=== PATIENT | male | born 1990 | race Caucasian/White ===

== ENCOUNTER 2016-04-14 01:28 | Emergency (ER) | payer OTHER ==
[2016-04-14] MEDS ORDERED: ACETAMINOPHEN 325 MG TAB As Ordered ONE (02:29)
[2016-04-14] MEDS ORDERED: KETOROLAC 30 MG/ML VIAL (J1885) As Ordered ONE (02:30)
[2016-04-14] MEDS ORDERED: ONDANSETRON 4MG/2ML VIAL (J2405) As Ordered ONE (02:30)
--- NOTE | 2016-04-14 02:41 | REP ---
Clinical: Epigastric and abdominal pain. Technique: Upright view of the chest with supine and upright views of the abdomen and pelvis. Findings: Frontal upright view of the chest demonstrates no acute cardiopulmonary process or free air below the diaphragm to suspect pneumoperitoneum. Supine and upright views of the abdomen and pelvis demonstrate nonspecific bowel gas pattern without obstruction or perforation. No organomegaly. No abnormal calcifications. Skeletal structures normal for age. Impression: Nonspecific bowel gas pattern. Signed by Randy Shukla MD 04/14/2016 02:31 A
[2016-04-14 02:51] LABS: BASO % 0.1 % (0.0-1.0); EOS # 0.1 K/mm3 (0.0-0.50); EOS % 1.2 % (0.0-3.0); LARGE UNSTAINED CELL % 0.7 % (0.0-4.0); LYMPH # 0.4 K/mm3 (1.5-6.5); LYMPH % 6.9 % (24.0-44.0); MEAN CORPUSCULAR HEMOGLOBIN 29.5 pg (27.0-33.0); MEAN CORPUSCULAR HGB CONC 35.2 g/dl (32.0-36.5); MEAN CORPUSCULAR VOLUME 83.8 fl (80.0-96.0); MONO # 0.3 K/mm3 (0.0-0.8); MONO % 4.6 % (0.0-5.0); NEUTROPHILS # 4.9 K/mm3 (1.8-7.7); NEUTROPHILS % 86.5 % (36.0-66.0); PLATELET COUNT, AUTOMATED 139 k/mm3 (150-450); RED CELL DISTRIBUTION WIDTH 12.6 % (11.5-14.5); WHITE BLOOD COUNT 5.7 K/mm3 (4.0-10.0)
[2016-04-14 03:16] LABS: ALBUMIN 3.8 GM/DL (3.2-5.2); ALBUMIN/GLOBULIN RATIO 1.23 (1.00-1.93); ALKALINE PHOSPHATASE 27 U/L (45-117); ALT/SGPT 33 U/L (12-78); ANION GAP 9 MEQ/L (8-16); AST/SGOT 23 U/L (15-37); BILIRUBIN,DIRECT 0.2 MG/DL (0.0-0.2); BILIRUBIN,TOTAL 0.5 MG/DL (0.2-1.0); BLOOD UREA NITROGEN 18 MG/DL (7-18); CALCIUM LEVEL 8.9 MG/DL (8.5-10.1); CARBON DIOXIDE LEVEL 27 MEQ/L (21-32); CHLORIDE LEVEL 105 MEQ/L (98-107); GLOMERULAR FILTRATION RATE > 60.0 (>60); GLUCOSE, FASTING 93 MG/DL (70-105); POTASSIUM SERUM 3.7 MEQ/L (3.5-5.1); SODIUM LEVEL 141 MEQ/L (136-145); TOTAL PROTEIN 6.9 GM/DL (6.4-8.2)
[2016-04-14] MEDS ORDERED: METAL LOCK LOOP XX ONE ×2 (03:33→13:15)
[2016-04-14] MEDS ORDERED: GASTROGRAFIN SOLUTION 30ML (Q9963) As Ordered ONE (03:48)
[2016-04-14] MEDS ORDERED: MORPHINE 4 MG/ML 1ML SYRINGE As Ordered ONE ×2 (04:35)
[2016-04-14] MEDS ORDERED: ISOVUE-370 76% 100ML VIAL (Q9967) As Ordered ONE (04:42)
--- NOTE | 2016-04-14 06:10 | REPUSA ---
CLINICAL HISTORY: Abdominal pain. TECHNIQUE: Multiple axial, sagittal and coronal CT images were obtained through the abdomen and pelvi s after administration of oral and intravenous contrast material. COMMENTS: The liver is of uniform attenuation without mass or defect. There is no intra or extrahepatic biliary ductal dilatation. The spleen is normal. The gallbladder is within normal limits. The pancreas is of normal contour and attenuation characteristics. There is no evidence of adrenal mass. Both kidneys demonstrate prompt and equal nephrograms. The kidneys are normal in size, shape and conf iguration. There is no evidence of renal or ureteral mass. No renal or ureteral calculi are identifie d. There is no hydroureter or hydronephrosis. No evidence for appendicitis. There is no bowel wall thickening. No evidence for small or large florinda l obstruction. There is no evidence of abdominal ascites or lymphadenopathy. There is no evidence of intrinsic or extrinsic bladder mass. There is no pelvic ascites or lymphadeno fabricio. Images of the lung bases show no evidence of pleural or parenchymal mass. There are no pleural effusi ons. The bony structures are free of lytic or blastic lesions. IMPRESSION: No evidence of acute abdominal or pelvic pathology. Thank you for your kind referral of this patient.
--- NOTE | 2016-04-14 06:29 | EDDOCDS ---
Nurse's Notes [facility] Name: Randy Fortune Age: 25 yrs Sex: Male : 1990 Arrival Date: 04/14/2016 Time: 01:28 Bed 7 Private MD: Diagnosis: Generalized abdominal pain;Fever, unspecified Presentation: 04/14 01:45 Presenting complaint: Patient states: Pt woke up about one hour ago with abdominal pain lf1 that is currently 8/10 with diarrhea, no nausea or vomiting. Risk factors: the patient reports. 01:51 Adult Sepsis Screening: The patient does not have new or worsening altered mentation. lf1 Patient has a respiratory rate of greater than or equal to 22 (1 point). Systolic blood pressure is greater than 100. Patient has a qSOFA score of 1- Negative Sepsis Screen. Suicide/Homicide risk assessment- the patient denies having any suicidal and/or homicidal ideations and does not present with any other emotional, behavioral or mental health complaints. 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 Transition of care: patient was not received from another setting of care. 01:51 Acuity: ISMA Level 3 lf1 01:51 Method Of Arrival: Walkin/Carried/Asstd lf1 Triage Assessment: 01:53 General: Appears ill, Behavior is cooperative. Pain: Location: abdomen Pain currently lf1 is 8 out of 10 on a pain scale. HIV screening NA for this visit Offered previously. Neurological: Level of Consciousness is awake, alert, Oriented to person, place, time. EENT: Denies nasal congestion. Cardiovascular: Chest pain is denied. Respiratory: Respiratory effort is even, pursed lip, Respiratory pattern is regular, increased due to pain - per patient Reports shortness of breath. GI: Reports diarrhea, lower abdominal pain, upper abd pain, nausea. : No deficits noted. Derm: Skin is clammy, Skin is normal, Skin temperature is warm. Injury Description: No known injury. Historical: - Allergies: No known drug Allergies; - Home Meds: 1. Zofran (as hydrochloride) 4 mg Oral tab 1 tabs every 6 (Last dose: 04/14/2016 00:30) 2. Tylenol 500mg Oral (Last dose: 04/13/2016 19:00) - PMHx: none; - PSHx: none; - Social history: Smoking status: Patient states former smoker of tobacco. No barriers to communication noted, The patient speaks fluent Finnish, Speaks appropriately for age, Preferred Language: Finnish. - Family history: Not pertinent. - : The pt / caregiver states he / she is not on anticoagulants. Home medication list is obtained from the patient. - Exposure Risk Screening:: None identified. Screenin:50 Screening information is obtained from the patient. Fall risk: No risks identified. cf2 Assistance ADL's: requires no assistance with activities of daily living. Abuse/DV Screen: The patient / caregiver reports he/she is: not in a situation that causes fear, pain or injury. Nutritional screening: No deficits noted. Advance Directives: Further advance directive information is declined. home support is adequate. Assessment: 02:50 Adult Sepsis Screening: The patient does not have new or worsening altered mentation. cf2 Patient's respiratory rate is less than 22. Systolic blood pressure is greater than 100. Patient has a qSOFA score of 0- Negative Sepsis Screen. General: Appears ill, well groomed, Behavior is appropriate for age, cooperative, Reports fever for feeling ill for 1-2 days. Pain: Location: abdomen. Periumbilical going to right lower quadrant. Neurological: No deficits noted. EENT: No deficits noted. Cardiovascular: No deficits noted. Respiratory: No deficits noted. GI: Abdomen is flat, non- distended Bowel sounds present X 4 quads. Abd is soft Abd is tender to palpation in umbilical area and right lower quadrant Reports diarrhea, nausea, vomiting. : No deficits noted. Derm: No deficits noted. Musculoskeletal: No deficits noted. Injury Description: No known injury. 03:52 General: Patient given oral contrast per orders. . nn1 04:51 Reassessment: Patient states symptoms have not improved. cf2 Vital Signs: 01:49 BP 128 / 61; Pulse 87; Resp 26; Temp 101.0(O); Pulse Ox 100% on R/A; Weight 87.09 kg; lf1 Height 72 in. (182.88 cm) (R); Pain 8/10; 04:15 BP 134 / 61; Pulse 71; Resp 18; Temp 99.5(O); Pulse Ox 96% on R/A; Pain 6/10; jmv 06:25 BP 126 / 70; Pulse 76; Resp 16; Temp 98.9; Pulse Ox 100% on R/A; Pain 2/10; cf2 01:49 Body Mass Index 26.04 (87.09 kg, 182.88 cm) [facility] Vitals: 01:49 Log In Time: April 14, 2016 at 01:30. [facility] ED Course: 01:30 Patient visited by Eloisa Jones Reg. hs2 01:30 Patient moved to Waiting hs2 01:48 Patient name changed from Randy\S\\S\Tong\S\ to Randy\S\ \S\Tong. EDMS 01:51 Triage Initiated lf1 01:55 Maria Del Rosario Qiu,JAMESON is Primary Nurse. cf2 01:55 Patient visited by Maria Del Rosario Qiu,JAMESON. cf2 01:55 Patient moved to lf1 02:04 Xander Maier PA-C is PHCP. cc10 02:04 Shaan Car MD is Attending Physician. cc10 02:04 Patient visited by Xander Maier PA-C. cc10 02:04 Patient visited by Xander Maier PA-C. cc10 02:27 Patient visited by Maria Del Rosario Qiu,JAMESON. cf2 02:48 Patient visited by Maria Del Rosario Qiu,JAMESON. cf2 02:48 Lactic Acid (Esparza tube on ice) Sent. cf2 02:48 Basic Metabolic Profile Sent. cf2 02:48 CBC with Diff Sent. cf2 02:48 Lipase Sent. cf2 02:49 Liver Profile Sent. cf2 02:50 Patient visited by Maria Del Rosario Qiu,JAMESON. cf2 02:50 The patient / caregiver is instructed regarding the plan of care and ED course. Patient cf2 has correct armband on for positive identification. Placed in gown. Bed in low position. Call light in reach. Side rails up X 1. Side rails up X2. Property :Personal belongings accompany Pt. Door closed. Noise minimized. Visitors limited. Lights dimmed. Moved to private room. Verbal reassurance given. Warm blanket given. Pillow given. Head of bed elevated. Diet: Patient is NPO. 02:50 Inserted saline lock: 20 gauge in left antecubital area and blood collected. The cf2 patient tolerated the procedure well. No procedures done that require assistance. 02:55 Patient visited by Maria Del Rosario Qiu RN. cf2 03:00 Abdomen, Flat\E\Upright,PA Chest Returned. EDMS 03:15 [facility] [place] was scanned into [employer] and attached to record. pm4 03:23 Patient visited by Maria Del Rosario Qiu RN. cf2 03:24 Patient visited by Maria Del Rosario Qiu RN. cf2 03:39 Patient visited by Shaan Car MD. br1 04:16 Patient visited by Fred Rich PCA. jmv 04:41 Patient visited by Yumi Silva RN. sls1 04:51 Patient visited by Maria Del Rosario Qiu RN. cf2 05:22 Patient visited by Maria Del Rosario Qiu RN. cf2 05:53 Patient visited by Maria Del Rosario Qiu RN. cf2 06:07 Patient visited by Maria Del Rosario Qiu RN. cf2 06:25 Patient visited by Maria Del Rosario Qiu RN. cf2 06:25 Discontinued lock bleeding controlled, pressure dressing applied, No redness/swelling cf2 at site. Administered Medications: Discontinued: NS 0.9% 1000 ml IV at bolus once Discontinued: NS 0.9% 1000 ml IV at 150 mL/hr continuous 02:20 Drug: NS 0.9% 1000 ml [sodium chloride 0.9 % intravenous solution] Route: IV; Rate: cf2 bolus; Site: left antecubital; 04:56 Follow up: Response: No significant change. cf2 02:20 Drug: Ondansetron 4 mg [ondansetron HCl 2 mg/mL intravenous solution (2 mL)] Route: cf2 IVP; Site: left antecubital; 04:55 Follow up: Response: No significant change.; Pain is decreased cf2 04:55 Follow up: Response: No significant change. cf2 02:20 Drug: ketorolac 30 mg [ketorolac 30 mg/mL (1 mL) injection solution (1 mL)] Route: IVP; cf2 Site: left antecubital; 04:55 Follow up: Response: No significant change. cf2 02:20 Drug: Acetaminophen 975 mg [acetaminophen 325 mg tablet (3 tabs)] Route: PO; cf2 04:55 Follow up: Response: No significant change. cf2 04:06 Drug: NS 0.9% 1000 ml [sodium chloride 0.9 % intravenous solution] Route: IV; Rate: 150 cf2 mL/hr; Site: left antecubital; 04:55 Follow up: Response: No significant change. cf2 04:06 Drug: Diatrizoate Meglumine & Sodium 10 ml [diatrizoate meglumine and diat.sodium 66 cf2 %-10 % oral solution (10 mL)] Route: PO; 04:51 Follow up: Response: No significant change. cf2 04:41 Drug: morphine 4 mg [morphine 4 mg/mL intravenous cartridge (1 mL)] Route: IVP; Site: sls1 left antecubital; 05:53 Follow up: Response: No Adverse Reaction cf2 Order Results: Lab Order: Basic Metabolic Profile; SPEC'M 04/14/16 02:43 Test: GLUCOSE, FASTING; Value: 93; Range: 70-105; Units: MG/DL; Status: F Test: BLOOD UREA NITROGEN; Value: 18; Range: 7-18; Units: MG/DL; Status: F Test: CREATININE FOR GFR; Value: 1.20; Range: 0.70-1.30; Units: MG/DL; Status: F Test: GLOMERULAR FILTRATION RATE; Value: > 60.0; Range: >60; Status: F Test: SODIUM LEVEL; Value: 141; Range: 136-145; Units: MEQ/L; Status: F Test: POTASSIUM SERUM; Value: 3.7; Range: 3.5-5.1; Units: MEQ/L; Status: F Test: CHLORIDE LEVEL; Value: 105; Range: 98-107; Units: MEQ/L; Status: F Test: CARBON DIOXIDE LEVEL; Value: 27; Range: 21-32; Units: MEQ/L; Status: F Test: ANION GAP; Value: 9; Range: 8-16; Units: MEQ/L; Status: F Test: CALCIUM LEVEL; Value: 8.9; Range: 8.5-10.1; Units: MG/DL; Status: F Test Note: ; Units are mL/min/1.73 m2 Chronic Kidney Disease Staging per NKF: Stage I & II GFR >=60 Normal to Mildly Decreased Stage III GFR 30-59 Moderately Decreased Stage IV GFR 15-29 Severely Decreased Stage V GFR <15 Very Little GFR Left ESRD GFR <15 on GRAPHIC MANAGER Lab Order: CBC with Diff; SPEC'M 04/14/16 02:43 Test: WHITE BLOOD COUNT; Value: 5.7; Range: 4.0-10.0; Units: K/mm3; Status: F Test: RED BLOOD COUNT; Value: 4.95; Range: 4.30-6.10; Units: M/mm3; Status: F Test: HEMOGLOBIN; Value: 14.6; Range: 14.0-18.0; Units: g/dl; Status: F Test: HEMATOCRIT; Value: 41.4; Range: 42.0-52.0; Abnormal: Below low normal; Units: %; Status: F Test: MEAN CORPUSCULAR VOLUME; Value: 83.8; Range: 80.0-96.0; Units: fl; Status: F Test: MEAN CORPUSCULAR HEMOGLOBIN; Value: 29.5; Range: 27.0-33.0; Units: pg; Status: F Test: MEAN CORPUSCULAR HGB CONC; Value: 35.2; Range: 32.0-36.5; Units: g/dl; Status: F Test: RED CELL DISTRIBUTION WIDTH; Value: 12.6; Range: 11.5-14.5; Units: %; Status: F Test: PLATELET COUNT, AUTOMATED; Value: 139; Range: 150-450; Abnormal: Below low normal; Units: k/mm3; Status: F Test: NEUTROPHILS %; Value: 86.5; Range: 36.0-66.0; Abnormal: Above high normal; Units: %; Status: F Test: LYMPH %; Value: 6.9; Range: 24.0-44.0; Abnormal: Below low normal; Units: %; Status: F Test: MONO %; Value: 4.6; Range: 0.0-5.0; Units: %; Status: F Test: EOS %; Value: 1.2; Range: 0.0-3.0; Units: %; Status: F Test: BASO %; Value: 0.1; Range: 0.0-1.0; Units: %; Status: F Test: LARGE UNSTAINED CELL %; Value: 0.7; Range: 0.0-4.0; Units: %; Status: F Test: NEUTROPHILS #; Value: 4.9; Range: 1.8-7.7; Units: K/mm3; Status: F Test: LYMPH #; Value: 0.4; Range: 1.5-6.5; Abnormal: Below low normal; Units: K/mm3; Status: F Test: MONO #; Value: 0.3; Range: 0.0-0.8; Units: K/mm3; Status: F Test: EOS #; Value: 0.1; Range: 0.0-0.50; Units: K/mm3; Status: F Test: BASO #; Value: 0.0; Range: 0.0-0.2; Units: K/mm3; Status: F Test: LARGE UNSTAINED CELL #; Value: 0.0; Range: 0.0-0.4; Units: K/mm3; Status: F Lab Order: Lipase; [facility]' 04/14/16 02:43 Test: LIPASE; Value: 88; Range: 73-393; Units: U/L; Status: F Lab Order: Liver Profile; [facility]' 04/14/16 02:43 Test: AST/SGOT; Value: 23; Range: 15-37; Units: U/L; Status: F Test: ALT/SGPT; Value: 33; Range: 12-78; Units: U/L; Status: F Test: ALKALINE PHOSPHATASE; Value: 27; Range: 45-117; Abnormal: Below low normal; Units: U/L; Status: F Test: BILIRUBIN,TOTAL; Value: 0.5; Range: 0.2-1.0; Units: MG/DL; Status: F Test: BILIRUBIN,DIRECT; Value: 0.2; Range: 0.0-0.2; Units: MG/DL; Status: F Test: TOTAL PROTEIN; Value: 6.9; Range: 6.4-8.2; Units: GM/DL; Status: F Test: ALBUMIN; Value: 3.8; Range: 3.2-5.2; Units: GM/DL; Status: F Test: ALBUMIN/GLOBULIN RATIO; Value: 1.23; Range: 1.00-1.93; Status: F Lab Order: Urinalysis; [facility] 04/14/16 02:43 Test: APPEARANCE, URINE; Value: CLEAR; Range: CLEAR; Status: F Test: COLOR, URINE; Value: YELLOW; Range: YELLOW; Status: F Test: PH,URINE; Value: 7.0; Range: 5.0-9.0; Units: UNITS; Status: F Test: SPECIFIC GRAVITY URINE AUTO; Value: 1.012; Range: 1.002-1.035; Status: F Test: PROTEIN, URINE AUTO; Value: NEGATIVE; Range: NEGATIVE; Units: mg/dL; Status: F Test: GLUCOSE, URINE (UA) AUTO; Value: NEGATIVE; Range: NEGATIVE; Units: mg/dL; Status: F Test: KETONE, URINE AUTO; Value: TRACE; Range: NEGATIVE; Abnormal: Above high normal; Units: mg/dL; Status: F Test: UROBILINOGEN, URINE AUTO; Value: 2.0; Range: 0.0-2.0; Abnormal: Above high normal; Units: mg/dL; Status: F Test: BILIRUBIN, URINE AUTO; Value: NEGATIVE; Range: NEGATIVE; Status: F Test: NITRITE, URINE AUTO; Value: NEGATIVE; Range: NEGATIVE; Status: F Test: LEUKOCYTE ESTERASE, URINE AUTO; Value: NEGATIVE; Range: NEGATIVE; Status: F Test: BLOOD, URINE BLOOD; Value: NEGATIVE; Range: NEGATIVE; Status: F Test: WBC, URINE AUTO; Value: 0; Range: 0-3; Units: /HPF; Status: F Test: RBC, URINE AUTO; Value: 0; Range: 0-3; Units: /HPF; Status: F Test: BACTERIA, URINE AUTO; Value: NEGATIVE; Range: NEGATIVE; Status: F Test: SQUAMOUS EPITHELIAL CELL UR AU; Value: 0; Range: 0-6; Units: /HPF; Status: F Test: MUCUS, URINE; Value: SMALL; Range: NEGATIVE; Status: F Test: HYALINE CAST, URINE AUTO; Value: 0; Range: 0-1; Units: /LPF; Status: F Lab Order: Lactic Acid (Esparza tube on ice); SPEC'M 04/14/16 02:43 Test: LACTIC ACID LEVEL, LACTATE; Value: 1.5; Range: 0.4-2.0; Units: MMOL/L; Status: F Radiology Order: Abdomen, Flat\E\Upright,PA Chest Test: Abdomen, Flat\E\Upright,PA Chest REASON FOR EXAMINATION: Abdomen Pain; Clinical: Epigastric and abdominal pain.; ; Technique: Upright view of the chest with supine and upright views of the; abdomen and pelvis.; ; Findings: Frontal upright view of the chest demonstrates no acute; cardiopulmonary process or free air below the diaphragm to suspect; pneumoperitoneum. Supine and upright views of the abdomen and pelvis demonstrate; nonspecific bowel gas pattern without obstruction or perforation. No; organomegaly. No abnormal calcifications. Skeletal structures normal for age.; ; Impression:; Nonspecific bowel gas pattern.; ; ; Signed by; Randy Shukla MD 04/14/2016 02:31 A; Outcome: 04:51 CT Study completed. cf2 06:14 Discharge ordered by Provider. br1 06:25 Discharge Assessment: Patient awake, alert and oriented x 3. No cognitive and/or cf2 functional deficits noted. Patient verbalized understanding of disposition instructions. Patient awake and alert. Oriented to person, place and time. Patient verbalized understanding of disposition instructions. patient administered narcotics - yes. Pt provided with safe discharge. The following High Risk Discharge criteria are identified: None. Discharged to home ambulatory. Condition: good Condition: stable Condition: improved. Discharge instructions given to patient, Instructed on discharge instructions, follow up and referral plans. Demonstrated understanding of instructions. 06:28 Patient left the ED. cf2 Signatures: Dispatcher [employer] EDMS Latasha Vargas,RN RN lf1 Shaan Car MD MD br1 Yumi Silva RN RN sls1 Xander Maier, PA-C PA-C cc10 Leandro HunterRN RN nn1 Eloisa Jones, Reg Reg hs2 Maria Del Rosario QiuRN RN cf2 Fred Rich, CCU NURSE CCU NURSE Vin Gunter, Reg Reg pm4 MTDD
--- NOTE | 2016-04-14 06:29 | EDDOCDS ---
Physician Documentation [facility] Name: Randy Fortune Age: 25 yrs Sex: Male : 1990 Arrival Date: 04/14/2016 Time: 01:28 Bed 7 Private MD: Disposition: 04/14/16 06:14 Discharged to Home/Self Care. Impression: Generalized abdominal pain, Fever, unspecified. - Condition is Stable. - Discharge Instructions: Abdominal Pain, Adult, Fever, Adult, Diarrhea. - Medication Reconciliation, Local Pharmacy Hours form. - Follow up: Private Physician; When: 1 - 2 days; Reason: Recheck today's complaints. - Problem is new. - Symptoms are resolved. - Notes: You were seen in the ED for right sided abdominal pain with fever and diarrhea. Bloodwork, urine tests and CT scan revealed no acute findings at this time. As you are feeling better you may return home. You may take Tylenol and Ibuprofen as needed for pain and may encourage plenty of fluids. Call your primary doctor to arrange to be seen for a recheck in the office this week. Return to the ED for any worsening pain, fever, blood in the diarrhea, inability to tolerate oral foods or liquids or any other concerns. Historical: - Allergies: No known drug Allergies; - Home Meds: 1. Zofran (as hydrochloride) 4 mg Oral tab 1 tabs every 6 (Last dose: 04/14/2016 00:30) 2. Tylenol 500mg Oral (Last dose: 04/13/2016 19:00) - PMHx: none; - PSHx: none; - Social history: Smoking status: Patient states former smoker of tobacco. No barriers to communication noted, The patient speaks fluent Cymraes, Speaks appropriately for age, Preferred Language: Cymraes. - Family history: Not pertinent. - : The pt / caregiver states he / she is not on anticoagulants. Home medication list is obtained from the patient. - Exposure Risk Screening:: None identified. Vital Signs: 04/14 01:49 BP 128 / 61; Pulse 87; Resp 26; Temp 101.0(O); Pulse Ox 100% on R/A; Weight 87.09 kg / lf1 192 lbs; Height 72 in. (182.88 cm) (R); Pain 8/10; 04:15 BP 134 / 61; Pulse 71; Resp 18; Temp 99.5(O); Pulse Ox 96% on R/A; Pain 6/10; jmv 06:25 BP 126 / 70; Pulse 76; Resp 16; Temp 98.9; Pulse Ox 100% on R/A; Pain 2/10; cf2 01:49 Body Mass Index 26.04 (87.09 kg, 182.88 cm) lf1 MDM: 02:08 NS 0.9% 1000 ml IV at bolus once ordered. cc10 02:08 Ondansetron 4 mg IVP once ordered. cc10 02:08 ketorolac 30 mg IVP once ordered. cc10 02:08 IV Saline Lock ordered. cc10 02:08 Undress patient appropriately for examination ordered. cc10 02:08 Acetaminophen Tablet 975 mg PO once ordered. cc10 02:09 NOTHING BY MOUTH+DIET ordered. EDMS 02:09 Basic Metabolic Profile Ordered. EDMS 02:09 CBC with Diff Ordered. EDMS 02:09 Lipase Ordered. EDMS 02:09 Liver Profile Ordered. EDMS 02:09 Urinalysis Ordered. EDMS 02:09 Lactic Acid (Esparza tube on ice) Ordered. EDMS 02:10 Abdomen, Flat\E\Upright,PA Chest Ordered. EDMS 02:33 Financial registration complete. pm4 03:15 [facility] [place] was scanned into [employer] and attached to record. pm4 03:36 CBC with Diff Reviewed. br1 03:36 Liver Profile Reviewed. br1 03:36 Basic Metabolic Profile Reviewed. br1 03:36 Lipase Reviewed. br1 03:36 Lactic Acid (Esparza tube on ice) Reviewed. br1 03:36 Abdomen, Flat\E\Upright,PA Chest Reviewed. br1 03:38 Recheck Vital Signs, perform reassessment and enter into [employer] ordered. br1 03:39 NS 0.9% 1000 ml IV at 150 mL/hr continuous ordered. br1 03:40 CT ABD & PELVIS: IV and Oral Contrast Ordered. EDMS 03:46 Diatrizoate Meglumine & Sodium Liquid 10 ml PO once; mix in 290cc of water; 1st cup at nn1 0400, 2nd cup at 0430 ordered. 04:34 morphine 4 mg IVP once ordered. br1 04:41 Urinalysis Reviewed. br1 Administered Medications: Discontinued: NS 0.9% 1000 ml IV at bolus once Discontinued: NS 0.9% 1000 ml IV at 150 mL/hr continuous 02:20 Drug: NS 0.9% 1000 ml [sodium chloride 0.9 % intravenous solution] Route: IV; Rate: cf2 bolus; Site: left antecubital; 04:56 Follow up: Response: No significant change. cf2 02:20 Drug: Ondansetron 4 mg [ondansetron HCl 2 mg/mL intravenous solution (2 mL)] Route: cf2 IVP; Site: left antecubital; 04:55 Follow up: Response: No significant change.; Pain is decreased cf2 04:55 Follow up: Response: No significant change. cf2 02:20 Drug: ketorolac 30 mg [ketorolac 30 mg/mL (1 mL) injection solution (1 mL)] Route: IVP; cf2 Site: left antecubital; 04:55 Follow up: Response: No significant change. cf2 02:20 Drug: Acetaminophen 975 mg [acetaminophen 325 mg tablet (3 tabs)] Route: PO; cf2 04:55 Follow up: Response: No significant change. cf2 04:06 Drug: NS 0.9% 1000 ml [sodium chloride 0.9 % intravenous solution] Route: IV; Rate: 150 cf2 mL/hr; Site: left antecubital; 04:55 Follow up: Response: No significant change. cf2 04:06 Drug: Diatrizoate Meglumine & Sodium 10 ml [diatrizoate meglumine and diat.sodium 66 cf2 %-10 % oral solution (10 mL)] Route: PO; 04:51 Follow up: Response: No significant change. cf2 04:41 Drug: morphine 4 mg [morphine 4 mg/mL intravenous cartridge (1 mL)] Route: IVP; Site: sls1 left antecubital; 05:53 Follow up: Response: No Adverse Reaction cf2 Signatures: Dispatcher [employer] EDMS Latasha VargasRN RN lf1 Shaan Car MD MD br1 Xander Maier, PA-C PA-C cc10 Leandro Hunter RN RN nn1 Maria Del Rosario Qiu RN RN cf2 Vin Nuñez, Reg Reg pm4 Yumi Silva RN sls1 The chart was reviewed and I authenticate all verbal orders and agree with the evaluation and treatment provided.Attachments: 03:15 [facility] Payment Agreement pm4 MTDD
--- NOTE | 2016-04-16 07:29 | EDDOCDS ---
Nurse's Notes [facility] Name: Randy Fortune Age: 25 yrs Sex: Male : 1990 Arrival Date: 04/14/2016 Time: 01:28 Bed 7 Private MD: Diagnosis: Generalized abdominal pain;Fever, unspecified Presentation: 04/14 01:45 Presenting complaint: Patient states: Pt woke up about one hour ago with abdominal pain lf1 that is currently 8/10 with diarrhea, no nausea or vomiting. Risk factors: the patient reports. 01:51 Adult Sepsis Screening: The patient does not have new or worsening altered mentation. lf1 Patient has a respiratory rate of greater than or equal to 22 (1 point). Systolic blood pressure is greater than 100. Patient has a qSOFA score of 1- Negative Sepsis Screen. Suicide/Homicide risk assessment- the patient denies having any suicidal and/or homicidal ideations and does not present with any other emotional, behavioral or mental health complaints. 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 Transition of care: patient was not received from another setting of care. 01:51 Acuity: ISMA Level 3 lf1 01:51 Method Of Arrival: Walkin/Carried/Asstd lf1 Triage Assessment: 01:53 General: Appears ill, Behavior is cooperative. Pain: Location: abdomen Pain currently lf1 is 8 out of 10 on a pain scale. HIV screening NA for this visit Offered previously. Neurological: Level of Consciousness is awake, alert, Oriented to person, place, time. EENT: Denies nasal congestion. Cardiovascular: Chest pain is denied. Respiratory: Respiratory effort is even, pursed lip, Respiratory pattern is regular, increased due to pain - per patient Reports shortness of breath. GI: Reports diarrhea, lower abdominal pain, upper abd pain, nausea. : No deficits noted. Derm: Skin is clammy, Skin is normal, Skin temperature is warm. Injury Description: No known injury. Historical: - Allergies: No known drug Allergies; - Home Meds: 1. Zofran (as hydrochloride) 4 mg Oral tab 1 tabs every 6 (Last dose: 04/14/2016 00:30) 2. Tylenol 500mg Oral (Last dose: 04/13/2016 19:00) - PMHx: none; - PSHx: none; - Social history: Smoking status: Patient states former smoker of tobacco. No barriers to communication noted, The patient speaks fluent Venezuelan, Speaks appropriately for age, Preferred Language: Venezuelan. - Family history: Not pertinent. - : The pt / caregiver states he / she is not on anticoagulants. Home medication list is obtained from the patient. - Exposure Risk Screening:: None identified. Screenin:50 Screening information is obtained from the patient. Fall risk: No risks identified. cf2 Assistance ADL's: requires no assistance with activities of daily living. Abuse/DV Screen: The patient / caregiver reports he/she is: not in a situation that causes fear, pain or injury. Nutritional screening: No deficits noted. Advance Directives: Further advance directive information is declined. home support is adequate. Assessment: 02:50 Adult Sepsis Screening: The patient does not have new or worsening altered mentation. cf2 Patient's respiratory rate is less than 22. Systolic blood pressure is greater than 100. Patient has a qSOFA score of 0- Negative Sepsis Screen. General: Appears ill, well groomed, Behavior is appropriate for age, cooperative, Reports fever for feeling ill for 1-2 days. Pain: Location: abdomen. Periumbilical going to right lower quadrant. Neurological: No deficits noted. EENT: No deficits noted. Cardiovascular: No deficits noted. Respiratory: No deficits noted. GI: Abdomen is flat, non- distended Bowel sounds present X 4 quads. Abd is soft Abd is tender to palpation in umbilical area and right lower quadrant Reports diarrhea, nausea, vomiting. : No deficits noted. Derm: No deficits noted. Musculoskeletal: No deficits noted. Injury Description: No known injury. 03:52 General: Patient given oral contrast per orders. . nn1 04:51 Reassessment: Patient states symptoms have not improved. cf2 Vital Signs: 01:49 BP 128 / 61; Pulse 87; Resp 26; Temp 101.0(O); Pulse Ox 100% on R/A; Weight 87.09 kg; lf1 Height 72 in. (182.88 cm) (R); Pain 8/10; 04:15 BP 134 / 61; Pulse 71; Resp 18; Temp 99.5(O); Pulse Ox 96% on R/A; Pain 6/10; jmv 06:25 BP 126 / 70; Pulse 76; Resp 16; Temp 98.9; Pulse Ox 100% on R/A; Pain 2/10; cf2 01:49 Body Mass Index 26.04 (87.09 kg, 182.88 cm) [facility] Vitals: 01:49 Log In Time: April 14, 2016 at 01:30. [facility] ED Course: 01:30 Patient visited by Eloisa Jones Reg. hs2 01:30 Patient moved to Waiting hs2 01:48 Patient name changed from Randy\S\\S\Tong\S\ to Randy\S\ \S\Tong. EDMS 01:51 Triage Initiated lf1 01:55 Maria Del Rosario Qiu,JAMESON is Primary Nurse. cf2 01:55 Patient visited by Maria Del Rosario Qiu,JAMESON. cf2 01:55 Patient moved to lf1 02:04 Xander Maier PA-C is PHCP. cc10 02:04 Shaan Car MD is Attending Physician. cc10 02:04 Patient visited by Xander Maier PA-C. cc10 02:04 Patient visited by Xander Maier PA-C. cc10 02:27 Patient visited by Maria Del Rosario Qiu,JAMESON. cf2 02:48 Patient visited by Maria Del Rosario Qiu,JAMESON. cf2 02:48 Lactic Acid (Esparza tube on ice) Sent. cf2 02:48 Basic Metabolic Profile Sent. cf2 02:48 CBC with Diff Sent. cf2 02:48 Lipase Sent. cf2 02:49 Liver Profile Sent. cf2 02:50 Patient visited by Maria Del Rosario Qiu,JAMESON. cf2 02:50 The patient / caregiver is instructed regarding the plan of care and ED course. Patient cf2 has correct armband on for positive identification. Placed in gown. Bed in low position. Call light in reach. Side rails up X 1. Side rails up X2. Property :Personal belongings accompany Pt. Door closed. Noise minimized. Visitors limited. Lights dimmed. Moved to private room. Verbal reassurance given. Warm blanket given. Pillow given. Head of bed elevated. Diet: Patient is NPO. 02:50 Inserted saline lock: 20 gauge in left antecubital area and blood collected. The cf2 patient tolerated the procedure well. No procedures done that require assistance. 02:55 Patient visited by Maria Del Rosario Qiu RN. cf2 03:00 Abdomen, Flat\E\Upright,PA Chest Returned. EDMS 03:15 [facility] Payment Agreement was scanned into [employer] and attached to record. pm4 03:23 Patient visited by Maria Del Rosario Qiu RN. cf2 03:24 Patient visited by Maria Del Rosario Qiu RN. cf2 03:39 Patient visited by Shaan Car MD. br1 04:16 Patient visited by Fred Rich PCA. jmv 04:41 Patient visited by Yumi Silva RN. sls1 04:51 Patient visited by Maria Del Rosario Qiu RN. cf2 05:22 Patient visited by Maria Del Rosario Qiu RN. cf2 05:53 Patient visited by Maria Del Rosario Qiu RN. cf2 06:07 Patient visited by Maria Del Rosario Qiu RN. cf2 06:25 Patient visited by Maria Del Rosario Qiu RN. cf2 06:25 Discontinued lock bleeding controlled, pressure dressing applied, No redness/swelling cf2 at site. 06:32 CT ABD & PELVIS: IV and Oral Contrast Returned. EDMS 13:49 T-Sheet-- Draft Copy was scanned into [employer] and attached to record. gb 13:49 Radiology Report was scanned into [employer] and attached to record. gb Administered Medications: Discontinued: NS 0.9% 1000 ml IV at bolus once Discontinued: NS 0.9% 1000 ml IV at 150 mL/hr continuous 02:20 Drug: NS 0.9% 1000 ml [sodium chloride 0.9 % intravenous solution] Route: IV; Rate: cf2 bolus; Site: left antecubital; 04:56 Follow up: Response: No significant change. cf2 02:20 Drug: Ondansetron 4 mg [ondansetron HCl 2 mg/mL intravenous solution (2 mL)] Route: cf2 IVP; Site: left antecubital; 04:55 Follow up: Response: No significant change.; Pain is decreased cf2 04:55 Follow up: Response: No significant change. cf2 02:20 Drug: ketorolac 30 mg [ketorolac 30 mg/mL (1 mL) injection solution (1 mL)] Route: IVP; cf2 Site: left antecubital; 04:55 Follow up: Response: No significant change. cf2 02:20 Drug: Acetaminophen 975 mg [acetaminophen 325 mg tablet (3 tabs)] Route: PO; cf2 04:55 Follow up: Response: No significant change. cf2 04:06 Drug: NS 0.9% 1000 ml [sodium chloride 0.9 % intravenous solution] Route: IV; Rate: 150 cf2 mL/hr; Site: left antecubital; 04:55 Follow up: Response: No significant change. cf2 04:06 Drug: Diatrizoate Meglumine & Sodium 10 ml [diatrizoate meglumine and diat.sodium 66 cf2 %-10 % oral solution (10 mL)] Route: PO; 04:51 Follow up: Response: No significant change. cf2 04:41 Drug: morphine 4 mg [morphine 4 mg/mL intravenous cartridge (1 mL)] Route: IVP; Site: [facility] left antecubital; 05:53 Follow up: Response: No Adverse Reaction cf2 Order Results: Lab Order: Basic Metabolic Profile; SPEC'M 04/14/16 02:43 Test: GLUCOSE, FASTING; Value: 93; Range: 70-105; Units: MG/DL; Status: F Test: BLOOD UREA NITROGEN; Value: 18; Range: 7-18; Units: MG/DL; Status: F Test: CREATININE FOR GFR; Value: 1.20; Range: 0.70-1.30; Units: MG/DL; Status: F Test: GLOMERULAR FILTRATION RATE; Value: > 60.0; Range: >60; Status: F Test: SODIUM LEVEL; Value: 141; Range: 136-145; Units: MEQ/L; Status: F Test: POTASSIUM SERUM; Value: 3.7; Range: 3.5-5.1; Units: MEQ/L; Status: F Test: CHLORIDE LEVEL; Value: 105; Range: 98-107; Units: MEQ/L; Status: F Test: CARBON DIOXIDE LEVEL; Value: 27; Range: 21-32; Units: MEQ/L; Status: F Test: ANION GAP; Value: 9; Range: 8-16; Units: MEQ/L; Status: F Test: CALCIUM LEVEL; Value: 8.9; Range: 8.5-10.1; Units: MG/DL; Status: F Test Note: ; Units are mL/min/1.73 m2 Chronic Kidney Disease Staging per NKF: Stage I & II GFR >=60 Normal to Mildly Decreased Stage III GFR 30-59 Moderately Decreased Stage IV GFR 15-29 Severely Decreased Stage V GFR <15 Very Little GFR Left ESRD GFR <15 on 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 Lab Order: CBC with Diff; MELISSA'M 04/14/16 02:43 Test: WHITE BLOOD COUNT; Value: 5.7; Range: 4.0-10.0; Units: K/mm3; Status: F Test: RED BLOOD COUNT; Value: 4.95; Range: 4.30-6.10; Units: M/mm3; Status: F Test: HEMOGLOBIN; Value: 14.6; Range: 14.0-18.0; Units: g/dl; Status: F Test: HEMATOCRIT; Value: 41.4; Range: 42.0-52.0; Abnormal: Below low normal; Units: %; Status: F Test: MEAN CORPUSCULAR VOLUME; Value: 83.8; Range: 80.0-96.0; Units: fl; Status: F Test: MEAN CORPUSCULAR HEMOGLOBIN; Value: 29.5; Range: 27.0-33.0; Units: pg; Status: F Test: MEAN CORPUSCULAR HGB CONC; Value: 35.2; Range: 32.0-36.5; Units: g/dl; Status: F Test: RED CELL DISTRIBUTION WIDTH; Value: 12.6; Range: 11.5-14.5; Units: %; Status: F Test: PLATELET COUNT, AUTOMATED; Value: 139; Range: 150-450; Abnormal: Below low normal; Units: k/mm3; Status: F Test: NEUTROPHILS %; Value: 86.5; Range: 36.0-66.0; Abnormal: Above high normal; Units: %; Status: F Test: LYMPH %; Value: 6.9; Range: 24.0-44.0; Abnormal: Below low normal; Units: %; Status: F Test: MONO %; Value: 4.6; Range: 0.0-5.0; Units: %; Status: F Test: EOS %; Value: 1.2; Range: 0.0-3.0; Units: %; Status: F Test: BASO %; Value: 0.1; Range: 0.0-1.0; Units: %; Status: F Test: LARGE UNSTAINED CELL %; Value: 0.7; Range: 0.0-4.0; Units: %; Status: F Test: NEUTROPHILS #; Value: 4.9; Range: 1.8-7.7; Units: K/mm3; Status: F Test: LYMPH #; Value: 0.4; Range: 1.5-6.5; Abnormal: Below low normal; Units: K/mm3; Status: F Test: MONO #; Value: 0.3; Range: 0.0-0.8; Units: K/mm3; Status: F Test: EOS #; Value: 0.1; Range: 0.0-0.50; Units: K/mm3; Status: F Test: BASO #; Value: 0.0; Range: 0.0-0.2; Units: K/mm3; Status: F Test: LARGE UNSTAINED CELL #; Value: 0.0; Range: 0.0-0.4; Units: K/mm3; Status: F Lab Order: Lipase; SPEC'M 04/14/16 02:43 Test: LIPASE; Value: 88; Range: 73-393; Units: U/L; Status: F Lab Order: Liver Profile; SPEC'M 04/14/16 02:43 Test: AST/SGOT; Value: 23; Range: 15-37; Units: U/L; Status: F Test: ALT/SGPT; Value: 33; Range: 12-78; Units: U/L; Status: F Test: ALKALINE PHOSPHATASE; Value: 27; Range: 45-117; Abnormal: Below low normal; Units: U/L; Status: F Test: BILIRUBIN,TOTAL; Value: 0.5; Range: 0.2-1.0; Units: MG/DL; Status: F Test: BILIRUBIN,DIRECT; Value: 0.2; Range: 0.0-0.2; Units: MG/DL; Status: F Test: TOTAL PROTEIN; Value: 6.9; Range: 6.4-8.2; Units: GM/DL; Status: F Test: ALBUMIN; Value: 3.8; Range: 3.2-5.2; Units: GM/DL; Status: F Test: ALBUMIN/GLOBULIN RATIO; Value: 1.23; Range: 1.00-1.93; Status: F Lab Order: Urinalysis; SPEC'M 04/14/16 02:43 Test: APPEARANCE, URINE; Value: CLEAR; Range: CLEAR; Status: F Test: COLOR, URINE; Value: YELLOW; Range: YELLOW; Status: F Test: PH,URINE; Value: 7.0; Range: 5.0-9.0; Units: UNITS; Status: F Test: SPECIFIC GRAVITY URINE AUTO; Value: 1.012; Range: 1.002-1.035; Status: F Test: PROTEIN, URINE AUTO; Value: NEGATIVE; Range: NEGATIVE; Units: mg/dL; Status: F Test: GLUCOSE, URINE (UA) AUTO; Value: NEGATIVE; Range: NEGATIVE; Units: mg/dL; Status: F Test: KETONE, URINE AUTO; Value: TRACE; Range: NEGATIVE; Abnormal: Above high normal; Units: mg/dL; Status: F Test: UROBILINOGEN, URINE AUTO; Value: 2.0; Range: 0.0-2.0; Abnormal: Above high normal; Units: mg/dL; Status: F Test: BILIRUBIN, URINE AUTO; Value: NEGATIVE; Range: NEGATIVE; Status: F Test: NITRITE, URINE AUTO; Value: NEGATIVE; Range: NEGATIVE; Status: F Test: LEUKOCYTE ESTERASE, URINE AUTO; Value: NEGATIVE; Range: NEGATIVE; Status: F Test: BLOOD, URINE BLOOD; Value: NEGATIVE; Range: NEGATIVE; Status: F Test: WBC, URINE AUTO; Value: 0; Range: 0-3; Units: /HPF; Status: F Test: RBC, URINE AUTO; Value: 0; Range: 0-3; Units: /HPF; Status: F Test: BACTERIA, URINE AUTO; Value: NEGATIVE; Range: NEGATIVE; Status: F Test: SQUAMOUS EPITHELIAL CELL UR AU; Value: 0; Range: 0-6; Units: /HPF; Status: F Test: MUCUS, URINE; Value: SMALL; Range: NEGATIVE; Status: F Test: HYALINE CAST, URINE AUTO; Value: 0; Range: 0-1; Units: /LPF; Status: F Lab Order: Lactic Acid (Esparza tube on ice); SPEC'M 04/14/16 02:43 Test: LACTIC ACID LEVEL, LACTATE; Value: 1.5; Range: 0.4-2.0; Units: MMOL/L; Status: F Radiology Order: Abdomen, Flat\E\Upright,PA Chest Test: Abdomen, Flat\E\Upright,PA Chest REASON FOR EXAMINATION: Abdomen Pain; Clinical: Epigastric and abdominal pain.; ; Technique: Upright view of the chest with supine and upright views of the; abdomen and pelvis.; ; Findings: Frontal upright view of the chest demonstrates no acute; cardiopulmonary process or free air below the diaphragm to suspect; pneumoperitoneum. Supine and upright views of the abdomen and pelvis demonstrate; nonspecific bowel gas pattern without obstruction or perforation. No; organomegaly. No abnormal calcifications. Skeletal structures normal for age.; ; Impression:; Nonspecific bowel gas pattern.; ; ; Signed by; Randy Shukla MD 04/14/2016 02:31 A; Radiology Order: CT ABD & PELVIS: IV and Oral Contrast Test: CT ABD & PELVIS: IV and Oral Contrast REASON FOR EXAMINATION: Appendicitis; ; CLINICAL HISTORY: Abdominal pain.; TECHNIQUE: Multiple axial, sagittal and coronal CT images were obtained through the abdomen and pelvi; s after administration of oral and intravenous contrast material.; COMMENTS:; The liver is of uniform attenuation without mass or defect. There is no intra or extrahepatic biliary; ductal dilatation. The spleen is normal. The gallbladder is within normal limits. The pancreas is of; normal contour and attenuation characteristics. There is no evidence of adrenal mass.; Both kidneys demonstrate prompt and equal nephrograms. The kidneys are normal in size, shape and conf; iguration. There is no evidence of renal or ureteral mass. No renal or ureteral calculi are identifie; d. There is no hydroureter or hydronephrosis.; No evidence for appendicitis. There is no bowel wall thickening. No evidence for small or large florinda; l obstruction. There is no evidence of abdominal ascites or lymphadenopathy.; There is no evidence of intrinsic or extrinsic bladder mass. There is no pelvic ascites or lymphadeno; fabricio.; Images of the lung bases show no evidence of pleural or parenchymal mass. There are no pleural effusi; ons.; The bony structures are free of lytic or blastic lesions.; IMPRESSION:; No evidence of acute abdominal or pelvic pathology.; Thank you for your kind referral of this patient.; ; Outcome: 04:51 CT Study completed. cf2 06:14 Discharge ordered by Provider. br1 06:25 Discharge Assessment: Patient awake, alert and oriented x 3. No cognitive and/or cf2 functional deficits noted. Patient verbalized understanding of disposition instructions. Patient awake and alert. Oriented to person, place and time. Patient verbalized understanding of disposition instructions. patient administered narcotics - yes. Pt provided with safe discharge. The following High Risk Discharge criteria are identified: None. Discharged to home ambulatory. Condition: good Condition: stable Condition: improved. Discharge instructions given to patient, Instructed on discharge instructions, follow up and referral plans. Demonstrated understanding of instructions. 06:28 Patient left the ED. cf2 Signatures: Dispatcher [employer] EDMS Sakshi Wilson, Reg Reg gb Latasha Vargas,RN RN lf1 Shaan Car MD MD br1 Yumi Silva, RN RN sls1 Xander Maier, PA-C PA-C cc10 Leandro Hunter,RN RN nn1 Eloisa Jones, Reg Reg hs2 Maria Del Rosario Qiu,RN RN cf2 Fred Rich, MICROBIOLOGY LAB ASSISTANT MICROBIOLOGY LAB ASSISTANT jmv Vin Nuñez, Reg Reg pm4 Chart Complete MTDD
--- NOTE | 2016-04-16 07:29 | EDDOCDS ---
Physician Documentation [facility] Name: Randy Fortune Age: 25 yrs Sex: Male : 1990 Arrival Date: 04/14/2016 Time: 01:28 Bed 7 Private MD: Disposition: 04/14/16 06:14 Discharged to Home/Self Care. Impression: Generalized abdominal pain, Fever, unspecified. - Condition is Stable. - Discharge Instructions: Abdominal Pain, Adult, Fever, Adult, Diarrhea. - Medication Reconciliation, Local Pharmacy Hours form. - Follow up: Private Physician; When: 1 - 2 days; Reason: Recheck today's complaints. - Problem is new. - Symptoms are resolved. - Notes: You were seen in the ED for right sided abdominal pain with fever and diarrhea. Bloodwork, urine tests and CT scan revealed no acute findings at this time. As you are feeling better you may return home. You may take Tylenol and Ibuprofen as needed for pain and may encourage plenty of fluids. Call your primary doctor to arrange to be seen for a recheck in the office this week. Return to the ED for any worsening pain, fever, blood in the diarrhea, inability to tolerate oral foods or liquids or any other concerns. Historical: - Allergies: No known drug Allergies; - Home Meds: 1. Zofran (as hydrochloride) 4 mg Oral tab 1 tabs every 6 (Last dose: 04/14/2016 00:30) 2. Tylenol 500mg Oral (Last dose: 04/13/2016 19:00) - PMHx: none; - PSHx: none; - Social history: Smoking status: Patient states former smoker of tobacco. No barriers to communication noted, The patient speaks fluent Paraguayan, Speaks appropriately for age, Preferred Language: Paraguayan. - Family history: Not pertinent. - : The pt / caregiver states he / she is not on anticoagulants. Home medication list is obtained from the patient. - Exposure Risk Screening:: None identified. Vital Signs: 04/14 01:49 BP 128 / 61; Pulse 87; Resp 26; Temp 101.0(O); Pulse Ox 100% on R/A; Weight 87.09 kg / lf1 192 lbs; Height 72 in. (182.88 cm) (R); Pain 8/10; 04:15 BP 134 / 61; Pulse 71; Resp 18; Temp 99.5(O); Pulse Ox 96% on R/A; Pain 6/10; jmv 06:25 BP 126 / 70; Pulse 76; Resp 16; Temp 98.9; Pulse Ox 100% on R/A; Pain 2/10; cf2 01:49 Body Mass Index 26.04 (87.09 kg, 182.88 cm) lf1 MDM: 02:08 NS 0.9% 1000 ml IV at bolus once ordered. cc10 02:08 Ondansetron 4 mg IVP once ordered. cc10 02:08 ketorolac 30 mg IVP once ordered. cc10 02:08 IV Saline Lock ordered. cc10 02:08 Undress patient appropriately for examination ordered. cc10 02:08 Acetaminophen Tablet 975 mg PO once ordered. cc10 02:09 NOTHING BY MOUTH+DIET ordered. EDMS 02:09 Basic Metabolic Profile Ordered. EDMS 02:09 CBC with Diff Ordered. EDMS 02:09 Lipase Ordered. EDMS 02:09 Liver Profile Ordered. EDMS 02:09 Urinalysis Ordered. EDMS 02:09 Lactic Acid (Esparza tube on ice) Ordered. EDMS 02:10 Abdomen, Flat\E\Upright,PA Chest Ordered. EDMS 02:33 Financial registration complete. pm4 03:15 [facility] Payment Agreement was scanned into [employer] and attached to record. pm4 03:36 CBC with Diff Reviewed. br1 03:36 Liver Profile Reviewed. br1 03:36 Basic Metabolic Profile Reviewed. br1 03:36 Lipase Reviewed. br1 03:36 Lactic Acid (Esparza tube on ice) Reviewed. br1 03:36 Abdomen, Flat\E\Upright,PA Chest Reviewed. br1 03:38 Recheck Vital Signs, perform reassessment and enter into [employer] ordered. br1 03:39 NS 0.9% 1000 ml IV at 150 mL/hr continuous ordered. br1 03:40 CT ABD & PELVIS: IV and Oral Contrast Ordered. EDMS 03:46 Diatrizoate Meglumine & Sodium Liquid 10 ml PO once; mix in 290cc of water; 1st cup at nn1 0400, 2nd cup at 0430 ordered. 04:34 morphine 4 mg IVP once ordered. br1 04:41 Urinalysis Reviewed. br1 13:49 T-Sheet-- Draft Copy was scanned into [employer] and attached to record. gb 13:49 Radiology Report was scanned into [employer] and attached to record. gb Administered Medications: Discontinued: NS 0.9% 1000 ml IV at bolus once Discontinued: NS 0.9% 1000 ml IV at 150 mL/hr continuous 02:20 Drug: NS 0.9% 1000 ml [sodium chloride 0.9 % intravenous solution] Route: IV; Rate: cf2 bolus; Site: left antecubital; 04:56 Follow up: Response: No significant change. cf2 02:20 Drug: Ondansetron 4 mg [ondansetron HCl 2 mg/mL intravenous solution (2 mL)] Route: cf2 IVP; Site: left antecubital; 04:55 Follow up: Response: No significant change.; Pain is decreased cf2 04:55 Follow up: Response: No significant change. cf2 02:20 Drug: ketorolac 30 mg [ketorolac 30 mg/mL (1 mL) injection solution (1 mL)] Route: IVP; cf2 Site: left antecubital; 04:55 Follow up: Response: No significant change. cf2 02:20 Drug: Acetaminophen 975 mg [acetaminophen 325 mg tablet (3 tabs)] Route: PO; cf2 04:55 Follow up: Response: No significant change. cf2 04:06 Drug: NS 0.9% 1000 ml [sodium chloride 0.9 % intravenous solution] Route: IV; Rate: 150 cf2 mL/hr; Site: left antecubital; 04:55 Follow up: Response: No significant change. cf2 04:06 Drug: Diatrizoate Meglumine & Sodium 10 ml [diatrizoate meglumine and diat.sodium 66 cf2 %-10 % oral solution (10 mL)] Route: PO; 04:51 Follow up: Response: No significant change. cf2 04:41 Drug: morphine 4 mg [morphine 4 mg/mL intravenous cartridge (1 mL)] Route: IVP; Site: sls1 left antecubital; 05:53 Follow up: Response: No Adverse Reaction cf2 Signatures: Dispatcher [employer] EDMS Sakshi Wilson, Reg Reg gb Latasha Vargas RN RN lf1 Shaan Car MD MD br1 Xander Maier PA-C [place] cc10 Leandro HunterRN RN nn1 Maria Del Rosario QiuRN RN cf2 Vin Nuñez, Reg Reg pm4 Yumi Silva RN sls1 The chart was reviewed and I authenticate all verbal orders and agree with the evaluation and treatment provided.Attachments: 03:15 [facility] Payment Agreement pm4 13:49 T-Sheet-- Draft Copy gb Chart Complete MTDD
--- NOTE | 2016-04-16 07:29 | EDDOCDS ---
Physician Documentation [facility] Name: Randy Fortune Age: 25 yrs Sex: Male : 1990 Arrival Date: 04/14/2016 Time: 01:28 Bed 7 Private MD: Disposition: 04/14/16 06:14 Discharged to Home/Self Care. Impression: Generalized abdominal pain, Fever, unspecified. - Condition is Stable. - Discharge Instructions: Abdominal Pain, Adult, Fever, Adult, Diarrhea. - Medication Reconciliation, Local Pharmacy Hours form. - Follow up: Private Physician; When: 1 - 2 days; Reason: Recheck today's complaints. - Problem is new. - Symptoms are resolved. - Notes: You were seen in the ED for right sided abdominal pain with fever and diarrhea. Bloodwork, urine tests and CT scan revealed no acute findings at this time. As you are feeling better you may return home. You may take Tylenol and Ibuprofen as needed for pain and may encourage plenty of fluids. Call your primary doctor to arrange to be seen for a recheck in the office this week. Return to the ED for any worsening pain, fever, blood in the diarrhea, inability to tolerate oral foods or liquids or any other concerns. Historical: - Allergies: No known drug Allergies; - Home Meds: 1. Zofran (as hydrochloride) 4 mg Oral tab 1 tabs every 6 (Last dose: 04/14/2016 00:30) 2. Tylenol 500mg Oral (Last dose: 04/13/2016 19:00) - PMHx: none; - PSHx: none; - Social history: Smoking status: Patient states former smoker of tobacco. No barriers to communication noted, The patient speaks fluent [place], Speaks appropriately for age, Preferred Language: [place]. - Family history: Not pertinent. - : The pt / caregiver states he / she is not on anticoagulants. Home medication list is obtained from the patient. - Exposure Risk Screening:: None identified. Vital Signs: 04/14 01:49 BP 128 / 61; Pulse 87; Resp 26; Temp 101.0(O); Pulse Ox 100% on R/A; Weight 87.09 kg / lf1 192 lbs; Height 72 in. (182.88 cm) (R); Pain 8/10; 04:15 BP 134 / 61; Pulse 71; Resp 18; Temp 99.5(O); Pulse Ox 96% on R/A; Pain 6/10; jmv 06:25 BP 126 / 70; Pulse 76; Resp 16; Temp 98.9; Pulse Ox 100% on R/A; Pain 2/10; cf2 01:49 Body Mass Index 26.04 (87.09 kg, 182.88 cm) lf1 MDM: 02:08 NS 0.9% 1000 ml IV at bolus once ordered. cc10 02:08 Ondansetron 4 mg IVP once ordered. cc10 02:08 ketorolac 30 mg IVP once ordered. cc10 02:08 IV Saline Lock ordered. cc10 02:08 Undress patient appropriately for examination ordered. cc10 02:08 Acetaminophen Tablet 975 mg PO once ordered. cc10 02:09 NOTHING BY MOUTH+DIET ordered. EDMS 02:09 Basic Metabolic Profile Ordered. EDMS 02:09 CBC with Diff Ordered. EDMS 02:09 Lipase Ordered. EDMS 02:09 Liver Profile Ordered. EDMS 02:09 Urinalysis Ordered. EDMS 02:09 Lactic Acid (Esparza tube on ice) Ordered. EDMS 02:10 Abdomen, Flat\E\Upright,PA Chest Ordered. EDMS 02:33 Financial registration complete. pm4 03:15 [facility] [place] Payment Agreement was scanned into [employer] and attached to record. pm4 03:36 CBC with Diff Reviewed. br1 03:36 Liver Profile Reviewed. br1 03:36 Basic Metabolic Profile Reviewed. br1 03:36 Lipase Reviewed. br1 03:36 Lactic Acid (Esparza tube on ice) Reviewed. br1 03:36 Abdomen, Flat\E\Upright,PA Chest Reviewed. br1 03:38 Recheck Vital Signs, perform reassessment and enter into [id number] Discoveries ordered. br1 03:39 NS 0.9% 1000 ml IV at 150 mL/hr continuous ordered. br1 03:40 CT ABD & PELVIS: IV and Oral Contrast Ordered. EDMS 03:46 Diatrizoate Meglumine & Sodium Liquid 10 ml PO once; mix in 290cc of water; 1st cup at nn1 0400, 2nd cup at 0430 ordered. 04:34 morphine 4 mg IVP once ordered. br1 04:41 Urinalysis Reviewed. br1 13:49 T-Sheet-- Draft Copy was scanned into [employer] and attached to record. gb 13:49 Radiology Report was scanned into [employer] and attached to record. gb Administered Medications: Discontinued: NS 0.9% 1000 ml IV at bolus once Discontinued: NS 0.9% 1000 ml IV at 150 mL/hr continuous 02:20 Drug: NS 0.9% 1000 ml [sodium chloride 0.9 % intravenous solution] Route: IV; Rate: cf2 bolus; Site: left antecubital; 04:56 Follow up: Response: No significant change. cf2 02:20 Drug: Ondansetron 4 mg [ondansetron HCl 2 mg/mL intravenous solution (2 mL)] Route: cf2 IVP; Site: left antecubital; 04:55 Follow up: Response: No significant change.; Pain is decreased cf2 04:55 Follow up: Response: No significant change. cf2 02:20 Drug: ketorolac 30 mg [ketorolac 30 mg/mL (1 mL) injection solution (1 mL)] Route: IVP; cf2 Site: left antecubital; 04:55 Follow up: Response: No significant change. cf2 02:20 Drug: Acetaminophen 975 mg [acetaminophen 325 mg tablet (3 tabs)] Route: PO; cf2 04:55 Follow up: Response: No significant change. cf2 04:06 Drug: NS 0.9% 1000 ml [sodium chloride 0.9 % intravenous solution] Route: IV; Rate: 150 cf2 mL/hr; Site: left antecubital; 04:55 Follow up: Response: No significant change. cf2 04:06 Drug: Diatrizoate Meglumine & Sodium 10 ml [diatrizoate meglumine and diat.sodium 66 cf2 %-10 % oral solution (10 mL)] Route: PO; 04:51 Follow up: Response: No significant change. cf2 04:41 Drug: morphine 4 mg [morphine 4 mg/mL intravenous cartridge (1 mL)] Route: IVP; Site: sls1 left antecubital; 05:53 Follow up: Response: No Adverse Reaction cf2 Signatures: Dispatcher [employer] EDMS Sakshi Wilson, Reg Reg gb Latasha Vargas RN RN lf1 Shaan Car MD MD br1 Xander Maier PA-C [place] cc10 Leandro HunterRN RN nn1 Maria Del Rosario QiuRN RN cf2 Vin Nuñez, Reg Reg pm4 Yumi Silva RN sls1 The chart was reviewed and I authenticate all verbal orders and agree with the evaluation and treatment provided.Attachments: 03:15 [facility] Payment Agreement pm4 13:49 T-Sheet-- Draft Copy gb Chart Complete MTDD
== END 2016-04-14 06:28 | disposition home or self-care (01) ==
LOC: EDSEX 01:28 → M ED 01:28
DX: R10.84 Generalized abdominal pain (principal); R50.9 Fever, unspecified; R19.7 Diarrhea, unspecified
CPT/HCPCS: 36415; 74022; 74177; 80048; 80076; 81001; 83605; 83690; 85025; 96361; 96374; 96375; 99284; J1885; J2405; Q9963; Q9967

== ENCOUNTER 2017-02-06 20:19 | Emergency (ER) | payer OTHER ==
[~2017-02-06] VITALS: Ht 182.9 cm; Wt 88.6 kg
[2017-02-06] MEDS ORDERED: NS 1,000 ML IV ONE (21:00)
[2017-02-06 21:18] LABS: BASO % 0.5 % (0.0-1.0); EOS # 0.2 10^3/uL (0.0-0.50); EOS % 2.6 % (0.0-3.0); IMMATURE GRANULOCYTE % 0.2 % (0-0); LYMPH # 2.5 10^3/uL (1.5-6.5); LYMPH % 40.1 % (24.0-44.0); MEAN CORPUSCULAR HEMOGLOBIN 28.8 pg (27.0-33.0); MEAN CORPUSCULAR HGB CONC 33.6 g/dl (32.0-36.5); MEAN CORPUSCULAR VOLUME 85.7 fl (80.0-96.0); MONO # 0.4 10^3/uL (0.0-0.8); MONO % 6.3 % (0.0-5.0); NEUTROPHILS # 3.1 10^3/uL (1.8-7.7); NEUTROPHILS % 50.3 % (36.0-66.0); PLATELET COUNT, AUTOMATED 204 10^3/uL (150-450); RED CELL DISTRIBUTION WIDTH 13.1 % (11.5-14.5); WHITE BLOOD COUNT 6.2 10^3/uL (4.0-10.0)
--- NOTE | 2017-02-06 21:19 | REP ---
Clinical: Right lower quadrant pain. Comparison: 04/14/2016. Findings: Lung bases are clear. Visualized heart and pericardium normal for noncontrast evaluation. Liver, spleen, pancreas, gallbladder, bilateral adrenal glands and kidneys are normal. No hydroureteronephrosis, perinephric stranding, intrarenal or obvious obstructing ureteral calculi are identified. Evaluation of the enteric system is limited by the lack of intraluminal contrast. No acute obstruction or inflammatory process identified. Right lower quadrant demonstrates normal appendix and cecum/terminal ileum. Pelvis demonstrates normal bladder and age appropriate prostate/seminal vesicles. No pelvic fluid or ascites. No free air. No obvious adenopathy. Abdominal aorta without aneurysm. Musculoskeletal structures are intact. Impression: No obvious acute abdominopelvic pathology appreciated. No free fluid. No adenopathy. No changes in the right lower quadrant to suggest acute appendicitis. Signed by Randy Shukla MD 02/06/2017 09:11 P
[2017-02-06 21:41] LABS: ALBUMIN 4.2 GM/DL (3.2-5.2); ALBUMIN/GLOBULIN RATIO 1.35 (1.00-1.93); ALKALINE PHOSPHATASE 36 U/L (45-117); ALT/SGPT 28 U/L (12-78); ANION GAP 5 MEQ/L (8-16); AST/SGOT 25 U/L (7-37); BILIRUBIN,DIRECT < 0.1 MG/DL (0.0-0.2); BILIRUBIN,TOTAL 0.3 MG/DL (0.2-1.0); BLOOD UREA NITROGEN 18 MG/DL (7-18); CALCIUM LEVEL 9.1 MG/DL (8.5-10.1); CARBON DIOXIDE LEVEL 30 MEQ/L (21-32); CHLORIDE LEVEL 106 MEQ/L (98-107); CREATININE FOR GFR 1.13 MG/DL (0.70-1.30); GLOMERULAR FILTRATION RATE > 60.0 (>60); GLUCOSE, FASTING 89 MG/DL (70-105); POTASSIUM SERUM 4.3 MEQ/L (3.5-5.1); SODIUM LEVEL 141 MEQ/L (136-145); TOTAL PROTEIN 7.3 GM/DL (6.4-8.2)
[2017-02-06 22:16] VITALS: BP 131/59
== END 2017-02-06 22:20 | disposition home or self-care (01) ==
LOC: M ED 20:19
DX: R10.9 Unspecified abdominal pain (principal)

== ENCOUNTER → 2019-04-24 | Outpatient (CLI) | payer OTHER ==
--- NOTE | 2019-04-25 06:45 | REP ---
Clinical: Periumbilical pain. Technique: Axial noncontrast images of the abdomen with coronal and sagittal re-formations. Comparison: 02/06/2017. Findings: Liver, spleen, pancreas, gallbladder, bilateral adrenal glands and kidneys are normal for noncontrast evaluation. The visualized enteric system is without obstruction or acute inflammatory process. Fecal stasis and possible constipation should be correlated with physical examination. No ascites. No free air. No adenopathy. Abdominal aorta without aneurysm. Musculoskeletal structures intact without focal abnormality. Lung bases are clear. Impression: Normal noncontrast CT of the abdomen. Electronically Signed by Randy Shukla MD 04/25/2019 06:37 A
== END ==
LOC: M RAD 08:34
PROVIDERS: ATTEND Physician Assistant Medical
DX: R10.9 Unspecified abdominal pain (principal)

== ENCOUNTER 2021-07-19 01:34 | Emergency (ER) | payer OTHER ==
[~2021-07-19] VITALS: Ht 182.9 cm; Wt 86.4 kg
[2021-07-19] MEDS ORDERED: KETOROLAC 30 MG/ML 1ML VIAL IV ONE (02:30)
[2021-07-19 03:06] LABS: BASO % 0.5 % (0.0-1.0); EOS # 0.2 10^3/uL (0.0-0.5); EOS % 3.4 % (0.0-3.0); HEMATOCRIT 45.3 % (42.0-52.0); HEMOGLOBIN 14.9 g/dl (13.5-17.5); LYMPH # 2.2 10^3/uL (1.5-5.0); LYMPH % 38.4 % (24.0-44.0); MEAN CORPUSCULAR HEMOGLOBIN 28.7 pg (27.0-33.0); MEAN CORPUSCULAR HGB CONC 32.9 g/dl (32.0-36.5); MEAN CORPUSCULAR VOLUME 87.3 fl (80.0-96.0); MONO # 0.4 10^3/uL (0.0-0.8); MONO % 7.8 % (2.0-8.0); NEUTROPHILS # 2.8 10^3/uL (1.5-8.5); NEUTROPHILS % 49.7 % (36.0-66.0); PLATELET COUNT, AUTOMATED 203 10^3/uL (150-450); RED BLOOD COUNT 5.19 10^6/uL (4.30-6.10); WHITE BLOOD COUNT 5.7 10^3/uL (4.0-10.0)
[2021-07-19 03:13] LABS: APPEARANCE, URINE CLEAR (CLEAR); BACTERIA, URINE AUTO NEGATIVE (NEGATIVE); BILIRUBIN, URINE AUTO NEGATIVE (NEGATIVE); BLOOD, URINE BLOOD NEGATIVE (NEGATIVE); COLOR, URINE YELLOW (YELLOW); GLUCOSE, URINE (UA) AUTO NEGATIVE (NEGATIVE); KETONE, URINE AUTO NEGATIVE (NEGATIVE); LEUKOCYTE ESTERASE, URINE AUTO NEGATIVE (NEGATIVE); NITRITE, URINE AUTO NEGATIVE (NEGATIVE); PROTEIN, URINE AUTO NEGATIVE (NEGATIVE); RBC, URINE AUTO 0 /HPF (0-3); SQUAMOUS EPITHELIAL CELL UR AU 0 /HPF (0-6); UROBILINOGEN, URINE AUTO 0.2 mg/dL (0.0-2.0); WBC, URINE AUTO 0 /HPF (0-3)
[2021-07-19 03:42] LABS: ALBUMIN 4.1 GM/DL (3.2-5.2); ALT/SGPT 32 U/L (12-78); BILIRUBIN,TOTAL 0.2 MG/DL (0.2-1.0); BLOOD UREA NITROGEN 20 MG/DL (7-18); CALCIUM LEVEL 9.3 MG/DL (8.5-10.1); CARBON DIOXIDE LEVEL 30 MEQ/L (21-32); CHLORIDE LEVEL 107 MEQ/L (98-107); CREATININE FOR GFR 1.21 MG/DL (0.70-1.30); GLOMERULAR FILTRATION RATE > 60.0 (>60); GLUCOSE, FASTING 87 MG/DL (70-100); LIPASE 119 U/L (73-393); POTASSIUM SERUM 3.6 MEQ/L (3.5-5.1); SODIUM LEVEL 142 MEQ/L (136-145)
[2021-07-19] MEDS ORDERED: ISOVUE-370 76% 100ML VIAL As Ordered ONE (03:52)
[2021-07-19 05:15] VITALS: BP 129/70
== END 2021-07-19 05:23 | disposition home or self-care (01) ==
LOC: M ED 01:34
DX: K59.00 Constipation, unspecified (principal)
CPT/HCPCS: 74177; 80053; 81001; 83605; 83690; 85025; 96374; 99284; J1885; Q9967